=== PATIENT | female | born 1985 | race Caucasian/White ===

== ENCOUNTER 2022-06-07 15:34 | Emergency (ER) | payer OTHER ==
--- OUTSIDE RECORDS SUMMARY | 2022-06-07 15:37 | XMS REPORT | Continuity of Care Document ---
:[address] [facility] t Address [address] [place] [address] Care Team Providers Name Role Phone Bartolo Nassar Attending Clinician Dimple Chilel MD Attending Clinician Robe Bernstein Attending Clinician Payers Payer Name Policy Type Policy Number Effective Date Expiration Date [facility] [place] [id number] 2018 PPO 00:00:00 Problems Condition Condition Condition Status Onset Resolution Last Treating Co mments Source Name Details Category Date Date Treatment Clinician Date S/P total S/P total Disease Active 2018-05 Uni vers abdominal abdominal 2-20 [place] [facility] Status Status Disease Active 2018-05 Univers post total post total 2-19 [place] abdominal abdominal [place] hysterect[place]rect[place] 00 Me dical my my Branch Abnormal Abnormal Disease Active 2012-05 Unive rs weight weight 0-29 ity of gain gain 00:00: [place] [facility] Pain in Pain in Disease Active 2012-05 Univers toe toe 0-15 ity of 00:00: [place] [facility] Antepartum Antepartum Disease Active Overview : Univers anemia anemia 9-09 ICD10 ity of 00:00: Diagnosis [place] 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 Medical [facility]. DOS: 3. CC: Swollen ankles and aching legs. Pt given K-Dur 40meq po. H/H- 7.4/ 25.7. PLT- 266.Will consult Agustina Awad. 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 Medical DOS- Branch 9. IUP at term. Repeat - low transvers e uterine incision. DOS- 7- Primary low transvers e incision. IUP at term. Probable CPD S/P LEEP S/P LEEP Disease Active Overview: Un sebastián of cervix of cervix 17 Awaiting it y of 00:00: medical [place] 00 records. Medical Branch UTI UTI Disease Active Overview: Univer s (urinary (urinary 17 Positive ity of tract tract 00:00: urine [place] infection) infection) 00 culture M edical Branch 3. LIEN- negative 3 Lump or Lump or Disease Active Univers mass in mass in 08-20 ity of breast breast 00:00: [address] Branch Allergies, Adverse Reactions, Alerts Allergy Allergy Status Severity Reaction(s) Onset Inactive Treating Comm ents Source Name Type Date Date Clinician NO KNOWN Drug Active Univers ALLERGIE Class ity of S [facility] Social History Social Habit Start Date Stop Date Quantity Comments Source History of 2004-03-13 Cigarette Smoker Universi ty of tobacco use 00:00:00 [facility] Exposure to Not sure University of SARS-CoV-2 [facility] (event) Branch Sex Assigned At Universit y of [facility] Tobacco use and 2019-06-12 2019-06-12 Never used Universit y of exposure 00:00:00 00:00:00 [facility] Alcohol intake 2019-06-12 2019-06-12 Current drinker Unive rsity of 00:00:00 00:00:00 of alcohol [place] [facility] (finding) Branch Alcohol Comment 2019-04-20 2019-04-20 Rare occasions Unive rsity of 00:00:00 00:00:00 [facility] Tobacco Comment 2019-03-13 2019-03-13 1/2 PPD Universit y of 00:00:00 00:00:00 [facility] Smoking Status Start Date Stop Date Source Current every day smoker 2019-06-12 00:00:00 Uni versity of [place] [facility] [place] Never smoker [facility] Medications Ordered Filled Start Stop Current Ordering Indication Dosage Frequency Signature Comments Components Source Medication Medication Date Date Medication? Clinician (SIG) Name Name chlorhexidi 2019-05 Yes [id number] 15mL Swish and Univers ne 0.12 % 1-17 spit out ity of mouthwash 00:00: 15 mL 2 [place] 00 (two) Medical times Branch daily. ibuprofen 2019- Yes [id number] 600mg Take 1 U nivers 600 mg 1-17 tablet by ity of tablet 00:00: mouth [place] 00 every 6 Medical (six) Branch hours as needed for Pain (scale 4-6). acetaminoph 2019-05 Yes [id number] 1{tbl} Take 1 Un [place]bast[place] en-codeine 1-17 tablet by ity of 300-30 mg 00:00: mouth [place] tablet 00 every 4 Medical (four) Branch hours as needed for Pain (scale 4-6). Indication s: acute pain amoxicillin 2019- 2020- No [id number] 500mg Take 1 Univers 500 mg 1-17 11-28 capsule by ity of capsule 00:00: 05:59 mouth 3 [place] 00 :00 (three) Medical times Branch daily for 10 days. Nitrofurant 2020-0 2020- No 100mg Take 1 Un [place] oin&Nit. 3-23 03-31 capsule by ity of Macrocryst 00:00: 04:59 mouth 2 [place] as 100 mg 00 :00 (two) Medical capsule times Branch daily for 7 days. acetaminoph 2019-0 Yes Take by Uni vers en/diphenhy 1-17 mouth. ity of dramine 15:57: [place] (TYLENOL PM 32 Medical ORAL) Branch acetaminoph 2019-0 Yes Take by Uni vers en/diphenhy 1-17 mouth. ity of dramine 15:57: [place] (TYLENOL PM 32 Medical ORAL) Branch acetaminoph 2020-0 Yes Take by Uni vers en/diphenhy 1-17 mouth. ity of dramine 15:57: [place] (TYLENOL PM 32 Medical ORAL) Branch acetaminoph 2020-0 Yes Take by Uni vers en/diphenhy 1-17 mouth. ity of dramine 15:57: [place] (TYLENOL PM 32 Medical ORAL) Branch acetaminoph 2019-0 Yes Take by Uni vers en/diphenhy 1-17 mouth. ity of dramine 15:57: [place] (TYLENOL PM 32 Medical ORAL) Branch acetaminoph 2019-0 Yes Take by Uni vers en/diphenhy 1-17 mouth. ity of dramine 15:57: [place] (TYLENOL PM 32 Medical ORAL) Branch acetaminoph 2019-0 Yes Take by Uni vers en/diphenhy 1-17 mouth. ity of dramine 15:57: [place] (TYLENOL PM 32 Medical ORAL) Branch calcium 2018-05 Yes 2{tbl} Take 2 Univer s carbonate 2-21 tablets by ity of (ALLEN-SELTZ 20:54: mouth 2 [place] ER ANTACID 32 (two) Medical ORAL) times Branch daily. calcium 2018-05 Yes 2{tbl} Take 2 Univer s carbonate 2-21 tablets by ity of (ALLEN-SELTZ 20:54: mouth 2 [place] as ER ANTACID 32 (two) Medical ORAL) times Branch daily. calcium 2018-05 Yes 2{tbl} Take 2 Univer s carbonate 2-21 tablets by ity of (ALLEN-SELTZ 20:54: mouth 2 [place] ER ANTACID 32 (two) Medical ORAL) times Branch daily. calcium 2018-05 Yes 2{tbl} Take 2 Univer s carbonate 2-21 tablets by ity of (ALLEN-SELTZ 20:54: mouth 2 [place] ER ANTACID 32 (two) Medical ORAL) times Branch daily. calcium 2018-05 Yes 2{tbl} Take 2 Univer s carbonate 2-21 tablets by ity of (ALLEN-SELTZ 20:54: mouth 2 [place] as ER ANTACID 32 (two) Medical ORAL) times Branch daily. calcium 2018-05 Yes 2{tbl} Take 2 Univer s carbonate 2-21 tablets by ity of (ALLEN-SELTZ 20:54: mouth 2 [place] ER ANTACID 32 (two) Medical ORAL) times Branch daily. calcium 2018-05 Yes 2{tbl} Take 2 Univer s carbonate 2-21 tablets by ity of (ALLEN-SELTZ 20:54: mouth 2 [place] ER ANTACID 32 (two) Medical ORAL) times Branch daily. ibuprofen 2018-05 Yes [id number] 600mg Take 1 Univers 600 mg 2-21 tablet by ity of tablet 00:00: mouth [place] 00 every 6 Medical (six) Branch hours as needed for Pain (scale 1-3). HYDROcodone 2018-05 Yes [id number] 1{tbl} Take 1 Univers -acetaminop 2-21 tablet by ity of hen 5-325 00:00: mouth [place] mg tablet 00 every 6 Medical (six) Branch hours as needed for Pain (scale 4-6) or Pain (scale 7-10). ibuprofen 2018-05 Yes [id number] 600mg Take 1 Univers 600 mg 2-21 tablet by ity of tablet 00:00: mouth [place] 00 every 6 Medical (six) Branch hours as needed for Pain (scale 1-3). HYDROcodone 2018-05 Yes [id number] 1{tbl} Take 1 Univers -acetaminop 2-21 tablet by ity of hen 5-325 00:00: mouth [place] mg tablet 00 every 6 Medical (six) Branch hours as needed for Pain (scale 4-6) or Pain (scale 7-10). ibuprofen 2018-05 Yes [id number] 600mg Take 1 Univers 600 mg 2-21 tablet by ity of tablet 00:00: mouth [place] 00 every 6 Medical (six) Branch hours as needed for Pain (scale 1-3). HYDROcodone 2018-05 Yes [id number] 1{tbl} Take 1 Univers -acetaminop 2-21 tablet by ity of hen 5-325 00:00: mouth [place] mg tablet 00 every 6 Medical (six) Branch hours as needed for Pain (scale 4-6) or Pain (scale 7-10). ibuprofen 2018-05 Yes [id number] 600mg Take 1 Univers 600 mg 2-21 tablet by ity of tablet 00:00: mouth [place] 00 every 6 Medical (six) Branch hours as needed for Pain (scale 1-3). HYDROcodone 2018-05 Yes [id number] 1{tbl} Take 1 Univers -acetaminop 2-21 tablet by ity of hen 5-325 00:00: mouth [place] mg tablet 00 every 6 Medical (six) Branch hours as needed for Pain (scale 4-6) or Pain (scale 7-10). ibuprofen 2018-05 Yes [id number] 600mg Take 1 Univers 600 mg 2-21 tablet by ity of tablet 00:00: mouth [place] 00 every 6 Medical (six) Branch hours as needed for Pain (scale 1-3). HYDROcodone 2018-05 Yes [id number] 1{tbl} Take 1 Univers -acetaminop 2-21 tablet by ity of hen 5-325 00:00: mouth [place] mg tablet 00 every 6 Medical (six) Branch hours as needed for Pain (scale 4-6) or Pain (scale 7-10). ibuprofen 2018-05 Yes [id number] 600mg Take 1 Univers 600 mg 2-21 tablet by ity of tablet 00:00: mouth [place] 00 every 6 Medical (six) Branch hours as needed for Pain (scale 1-3). HYDROcodone 2018-05 Yes [id number] 1{tbl} Take 1 Univers -acetaminop 2-21 tablet by ity of hen 5-325 00:00: mouth [place] mg tablet 00 every 6 Medical (six) Branch hours as needed for Pain (scale 4-6) or Pain (scale 7-10). ibuprofen 2018-05 Yes [id number] 600mg Take 1 Univers 600 mg 2-21 tablet by ity of tablet 00:00: mouth [place] 00 every 6 Medical (six) Branch hours as needed for Pain (scale 1-3). HYDROcodone 2018-05 Yes [id number] 1{tbl} Take 1 Univers -acetaminop 2-21 tablet by ity of hen 5-325 00:00: mouth [place] mg tablet 00 every 6 Medical (six) Branch hours as needed for Pain (scale 4-6) or Pain (scale 7-10). HYDROcodone 2019- No 1{tbl} 1 tablet, Univers -acetaminop -12-04 Oral, ONCE i ty of hen (NORCO) 22:45: 22:19 NOW, 1 [place] as 10-325 mg 00 :00 dose, [facility] Medic al tablet 1 12/04/18 at Branch tablet 1745, Routine traMADol Yes [id number] 50mg Take 1 Un sebastián (ULTRAM) 50 12-04 tablet by ity of mg tablet 00:00: mouth [place] 00 every 8 Medical (eight) Branch hours as needed for Pain (scale 4-6). ibuprofen 2019- No [id number] 600mg Take 1 Univers 600 mg 12-04 tablet by ity of tablet 00:00: 04:59 mouth 4 [place] 00 :00 (four) Medical times Branch daily as needed for Pain (scale 4-6) for up to 5 days. acetaminoph 2019- No [id number] 975mg Take 3 Univers en 12-04 tablets by ity of (TYLENOL) 00:00: 04:59 [place] 4 [place] 325 mg 00 :00 (four) Medical tablet times Branch daily for 5 days. This is the maximum safe dose for a healthy adult. cyclobenzap Yes 5mg Take 1 Univ ers rine 5 mg 08-06 tablet by ity o f tablet 00:00: mouth 2 [place] 00 (two) Medical times Branch daily as needed for Muscle Spasms for up to 15 doses. ibuprofen 2019- No 400mg Take 2 Univ ers (MOTRIN IB) 08-06 tablets by i ty of 200 mg 00:00: 00:00 mouth [place] tablet 00 :00 every 6 Medical (six) Branch hours as needed for Pain (scale 1-3) for up to 30 doses. Immunizations Ordered Filled Immunization Date Status Comments [facility] e Immunization Name Name Influenza Virus 2013-01-19 Completed Universit y of Vaccine 00:00:00 [facility] Influenza Virus 2013-01-19 Completed Universit y of Vaccine 00:00:00 [facility] Influenza Virus 2013-01-19 Completed Universit y of Vaccine 00:00:00 [facility] Influenza Virus 2013-01-19 Completed Universit y of Vaccine 00:00:00 [facility] Influenza Virus 2013-01-19 Completed Universit y of Vaccine 00:00:00 [facility] Influenza Virus 2013-01-19 Completed Universit y of Vaccine 00:00:00 [facility] Influenza Virus 2013-01-19 Completed Universit y of Vaccine 00:00:00 [facility] Influenza Virus 2013-01-19 Completed Universit y of Vaccine 00:00:00 [facility] Tdap 2013-01-09 Completed University of 00:00:00 [facility] Tdap 2013-01-09 Completed University of 00:00:00 [facility] Tdap 2013-01-09 Completed University of 00:00:00 [facility] TDAP 2013-01-09 Completed University of 00:00:00 [facility] Tdap 2013-01-09 Completed University of 00:00:00 [facility] Tdap 2013-01-09 Completed University of 00:00:00 [facility] Tdap 2013-01-09 Completed University of 00:00:00 [facility] Tdap 2013-01-09 Completed University of 00:00:00 [facility] Varicella 2012-08-21 Completed University of (varivax)(chicken 00:00:00 [place] M edical pox) Branch Varicella 2012-08-21 Completed University of (varivax)(chicken 00:00:00 [place] M edical pox) Branch Varicella 2012-08-21 Completed University of (varivax)(chicken 00:00:00 [place] M edical pox) Branch Varicella 2012-08-21 Completed University of (varivax)(chicken 00:00:00 [place] M edical pox) Branch Varicella 2012-08-21 Completed University of (varivax)(chicken 00:00:00 [place] M edical pox) Branch Varicella 2012-08-21 Completed University of (varivax)(chicken 00:00:00 [place] M edical pox) Branch Varicella 2012-08-21 Completed University of (varivax)(chicken 00:00:00 [place] M edical pox) Branch Varicella 2012-08-21 Completed University of (varivax)(chicken 00:00:00 [place] M edical pox) Branch Rubella 2008-06-21 Completed University of 00:00:00 [facility] Rubella 2008-06-21 Completed University of 00:00:00 [facility] Rubella 2008-06-21 Completed University of 00:00:00 [facility] Rubella 2008-06-21 Completed University of 00:00:00 [facility] Rubella 2008-06-21 Completed University of 00:00:00 [facility] Rubella 2008-06-21 Completed University of 00:00:00 [facility] Rubella 2008-06-21 Completed University of 00:00:00 [facility] Branch Rubella 2008-06-21 Completed University of 00:00:00 [place] [facility] Td 2003-05-06 Completed University of 00:00:00 [place] [facility] Td 2003-05-06 Completed University of 00:00:00 [place] [facility] Td 2003-05-06 Completed University of 00:00:00 [place] [facility] Td 2003-05-06 Completed University of 00:00:00 [place] [facility] Td 2003-05-06 Completed University of 00:00:00 [place] [facility] Td 2003-05-06 Completed University of 00:00:00 [place] [facility] Td 2003-05-06 Completed University of 00:00:00 [place] [facility] Td 2003-05-06 Completed University of 00:00:00 [facility] Vital Signs Vital Name Observation Time Observation Value Comments Source Systolic blood 2020-03-22 16:49:00 131 mm[Hg] Univer sity of pressure [facility] Diastolic blood 2020-03-22 16:49:00 75 mm[Hg] Unive rsity of [facility] Heart rate 2020-03-22 16:49:00 79 /min Universi ty [facility] Body temperature 2020-03-22 16:49:00 [facility].17 [facility] 2020-03-22 16:49:00 18 /min [facility] Body height 2020-03-22 16:49:00 165.1 cm [facility] Body weight 2020-03-22 16:49:00 72.576 kg [facility] BMI 2020-03-22 16:49:00 26.63 kg/m2 [facility] Oxygen saturation in 2020-03-22 16:49:00 100 /min [facility] Arterial blood by [facility] Pulse oximetry Branch Systolic blood 2019-06-12 16:37:00 106 mm[Hg] Univer sity of pressure [facility] Diastolic blood 2019-06-12 16:37:00 79 mm[Hg] Unive rsity of pressure [facility] Heart rate 2019-06-12 16:37:00 88 /min Universi ty [facility] Body temperature 2019-06-12 16:37:00 36.94 [facility] Respiratory rate 2019-06-12 16:37:00 18 /min Univ ersity of [place] [facility] Body weight 2019-06-12 16:37:00 71.668 kg Universi ty of [place] [facility] BMI 2019-06-12 16:37:00 29.85 kg/m2 Universi ty of [place] [facility] Systolic blood 2019-05-22 15:45:00 104 mm[Hg] Univer sity of pressure [facility] Diastolic blood 2019-05-22 15:45:00 68 mm[Hg] Unive rsity of pressure [facility] Heart rate 2019-05-22 15:45:00 83 /min Universi ty of [place] [facility] Body temperature 2019-05-22 15:45:00 36.94 [place] Univ ersity of [facility] Branch Respiratory rate 2019-05-22 15:45:00 18 /min Univ ersity of [place] [facility] Body height 2019-05-22 15:45:00 154.9 cm Universi ty of [place] [facility] Body weight 2019-05-22 15:45:00 69.854 kg Universi ty of [place] [facility] BMI 2019-05-22 15:45:00 29.10 kg/m2 Universi ty of [place] [facility] Systolic blood 2018-12-04 21:32:00 132 mm[Hg] Univer sity of pressure [place] [facility] Diastolic blood 2018-12-04 21:32:00 69 mm[Hg] Unive rsity of pressure [place] [facility] Heart rate 2018-12-04 21:32:00 87 /min Universi ty of [place] [facility] Respiratory rate 2018-12-04 21:32:00 18 /min Univ ersity of [place] [facility] Body height 2018-12-04 21:32:00 154.9 cm Universi ty of [place] [facility] Body weight 2018-12-04 21:32:00 65.772 kg Universi ty of [place] [facility] BMI 2018-12-04 21:32:00 27.40 kg/m2 Universi ty of [place] [facility] Oxygen saturation in 2018-12-04 21:32:00 98 /min [facility] Arterial blood by [facility] Pulse oximetry Branch Procedures Procedure Date / Time Performed Performing Clinician Sour e CONSENT/REFUSAL FOR 2020-03-22 16:45:23 Doctor Unassigned, No Un [facility] DIAGNOSIS AND Name Medical Branch TREATMENT NOTICE OF PRIVACY 2020-03-22 16:44:27 Doctor Unassigned, No Univ ersity of [place] PRACTICES Name Medical Branch XR FOOT 3+ VW RIGHT 2018-12-04 22:08:51 Robe Llanes Universi ty of [facility] XR TIBIA FIBULA 2 VW 2018-12-04 22:08:30 Robe Llanes ity of [facility] Branch Encounters Start End Encounter Admission Attending Care Care Encounter Source Date/Time Date/Time Type Type Clinicians Facility Department ID 2021-03-04 Emergency [facility] [id number] Univers 06:03:16 ity of [facility] 2020-03-22 2020-03-22 Emergency Bartolo Burnham [facility] [id number] Univers 10:52:00 11:59:00 Francine Rodriguez [id number] i ty of [place] [id number] [place] [id number] [address] 2019-07-27 2019-07-27 [facility] [id number] [facility] 00:00:00 00:00:00 Dimple Rodriguez [id number] i ty [place] [id number] [place] Profess[place] [phone] Nh dical nal [address] [place] [address] 2019-06-24 2019-06-24 Case [facility] [id number] Univers 00:00:00 00:00:00 Management Dimple Rodriguez [id number] ity of [place] [id number] [place] Profess[place] [phone] Nh dical nal [address] [place] [address] 2019-06-12 2019-06-12 Office [facility] [id number] Univers 09:48:15 11:25:17 Visit Dimple Rodriguez [id number] i ty of [place] [id number] [place] Profess[place] [phone] Nh dical nal [address] [place] [address] 2019-05-22 2019-05-22 Office [facility] [id number] Univers 09:43:11 10:33:09 Visit Dimple Rodriguez [id number] i ty of [place] [id number] [facility] Professio [phone] Nh dical nal [address] [facility] 2018-12-04 2018-12-04 Emergency Mario Alberto [facility] [id number] [facility] 16:35:19 18:17:00 Robe Rodriguez [id number] i ty of [place] [id number] [facility] s [place] [phone] [facility] [address] [place] Results Test Description Test Time Test Comments Results Result Sour e Comments XR TIBIA FIBULA Soft tissue Univers ity of 2 VW RIGHT 1 swelling along the [facility] 22:37:13 anterior aspect of Branch the proximal tibiawithout underlying fracture. I, Partha Perez MD., have reviewed this study and agree with the abovereport.* * * * * * * * ORIGINAL REPORT * * * * * * * *EXAM: XR TIBIA FIBULA 2 VW RIGHT. EXAM: XR FOOT 3+ VW RIGHT HISTORY: Right foot ankle and leg pain after stepping through the floor COMPARISON: None. FINDINGS: Radiographs of the right tibia-fibula and foot demonstrate no acutefractures or dislocations. Joint spaces are preserved. Alignment is withinnormal limits. Moderate soft tissue swelling is seen about the mid todistal tibia, most notable anteriorly. [facility], Radiant Results Inft User - 12/04/2018 5:37 PM CDT* * * * * * * * ORIGINAL REPORT * * * * * * * *EXAM: XR TIBIA FIBULA 2 VW RIGHT.EXAM: XR FOOT 3+ VW RIGHTHISTORY: Right foot ankle and leg pain after stepping through the floor COMPARISON: None.FINDINGS: Radiographs of the right tibia-fibula and foot demonstrate no acutefractures or dislocations. Joint spaces are preserved. Alignment is withinnormal limits. Moderate soft tissue swelling is seen about the mid todistal tibia, most notable anteriorly.IMPRESSI ONSoft tissue swelling along the anterior aspect of the proximal tibiawithout underlying fracture.IPartha MD., have reviewed this study and agree with the abovereport. XR FOOT 3+ VW Soft tissue Universit y of RIGHT 1 swelling along the [facility] 22:37:13 anterior aspect of Branch the proximal tibiawithout underlying fracture. IPartha MD., have reviewed this study and agree with the abovereport.* * * * * * * * ORIGINAL REPORT * * * * * * * *EXAM: XR TIBIA FIBULA 2 VW RIGHT. EXAM: XR FOOT 3+ VW RIGHT HISTORY: Right foot ankle and leg pain after stepping through the floor COMPARISON: None. FINDINGS: Radiographs of the right tibia-fibula and foot demonstrate no acutefractures or dislocations. Joint spaces are preserved. Alignment is withinnormal limits. Moderate soft tissue swelling is seen about the mid todistal tibia, most notable anteriorly. [facility], Radiant Results Inft User - 12/04/2018 5:37 PM CDT* * * * * * * * ORIGINAL REPORT * * * * * * * *EXAM: XR TIBIA FIBULA 2 VW RIGHT.EXAM: XR FOOT 3+ VW RIGHTHISTORY: Right foot ankle and leg pain after stepping through the floor COMPARISON: None.FINDINGS: Radiographs of the right tibia-fibula and foot demonstrate no acutefractures or dislocations. Joint spaces are preserved. Alignment is withinnormal limits. Moderate soft tissue swelling is seen about the mid todistal tibia, most notable anteriorly.IMPRESSI ONSoft tissue swelling along the anterior aspect of the proximal tibiawithout underlying fracture.Partha Naranjo MD., have reviewed this study and agree with the abovereport.
[2022-06-07] MEDS ORDERED: ASPIRIN 81 MG CHEWABLE TABLET ONE (15:52)
[2022-06-07 16:11] LABS: Absolute Lymphocytes (CBC) 2.1 K/uL (0.7-4.9); Hematocrit 45.3 % (36.0-45.0); Lymphocytes % 27.5 % (15.3-44.8); MCV 94.2 fL (80-100); MPV 9.8 fL (7.6-11.3); RBC Red Blood Cell Count 4.81 M/uL (3.86-4.86)
--- NOTE | 2022-06-07 16:40 | RAD REPORT ---
EXAM DESCRIPTION: RAD - Chest Single View - 06/07/2022 4:33 pm CLINICAL HISTORY: CHEST PAIN Chest pain. COMPARISON: No comparisons FINDINGS: Portable technique limits examination quality. The lungs are grossly clear. The heart is normal in size. No displaced fractures. IMPRESSION: No acute intrathoracic process suspected.
[2022-06-07 16:42] LABS: Magnesium 2.5 mg/dL (1.6-2.4); Potassium 3.8 mmol/L (3.5-5.1); Troponin High Sensitivity 3.3 pg/mL (<58.9)
[2022-06-07] MEDS ORDERED: NA CHLORIDE 0.9% 1,000 ML ONE (16:54)
[2022-06-07] MEDS ORDERED: KETOROLAC 30 MG/ML INJ ONE (18:34)
--- NOTE | 2022-06-07 19:27 | EDPHYS ---
Physician Documentation [facility] Name: Veronica Carrion Age: 37 yrs Sex: Female : 1985 Arrival Date: 06/07/2022 Time: 15:37 Bed 16 Private MD: ED Physician Will Haile HPI: 06/07 15:44 This 37 yrs old Female presents to ER via Ambulatory with complaints of Chest Pain. kb 15:44 Patient is a 37-year-old female with no medical history who presents with left-sided kb chest pain that started at 830 this morning. States pain has been intermittent and has occurred about 5 times. Pain does not radiate. Patient describes pain as a squeezing pain. Denies any aggravating or alleviating factors. Associated symptoms include dizziness. Denies shortness of breath, nausea, vomiting. Patient has not had similar symptoms in the past and has not recently seen a physician.. Historical: - Allergies: 15:43 Diflucan; ll1 15:43 Morphine; ll1 15:43 jalepanos; ll1 - PMHx: 15:43 Asthma; ll1 - PSHx: 15:43 hysterectomy; Cholecystectomy; section; ll1 - Immunization history:: Client reports having NOT received the Covid vaccine. - Social history:: Smoking status: Patient reports the use of cigarette tobacco products, smokes one pack cigarettes per day. Smoking status: . ROS: 15:44 Constitutional: Negative for fever, chills, and weight loss. kb 15:44 Cardiovascular: Positive for chest pain. 15:44 Neuro: Positive for dizziness. 15:44 All other systems are negative. Exam: 15:44 Constitutional: This is a well developed, well nourished patient who is awake, alert, kb and in no acute distress. Head/Face: Normocephalic, atraumatic. ENT: Moist Mucous membranes Cardiovascular: Regular rate and rhythm with a normal S1 and S2. No gallops, murmurs, or rubs. No pulse deficits. Respiratory: Respirations even and unlabored. No increased work of breathing. Talking in full sentences Abdomen/GI: Soft, non-tender. No distention Skin: Warm, dry with normal turgor. Normal color. MS/ Extremity: Pulses equal, no cyanosis. Neurovascular intact. Full, normal range of motion. Neuro: Awake and alert, GCS 15, oriented to person, place, time, and situation. Moves all extremities. Normal gait. 16:20 ECG was reviewed by the Attending Physician. kb Vital Signs: 15:41 BP 128 / 77; Pulse 88; Resp 17; Temp 98.8; Pulse Ox 97% ; Pain 5/10; ll1 16:15 BP 107 / 71; Pulse 74; Resp 17; Pulse Ox 100% on R/A; eh3 17:15 BP 107 / 66; Pulse 68; Resp 20; Pulse Ox 100% ; eh3 19:16 BP 109 / 69; Pulse 65; Resp 17; Pulse Ox 100% on R/A; jb4 MDM: 15:40 Patient medically screened. kb 15:47 Differential diagnosis: abnormal EKG, acute myocardial infarction, coronary artery kb disease chest wall pain, pleurisy, pneumonia. Data reviewed: vital signs, nurses notes. 19:25 Counseling: I had a detailed discussion with the patient and/or guardian regarding: the kb historical points, exam findings, and any diagnostic results supporting the discharge/admit diagnosis, lab results, radiology results, the need for outpatient follow up, a family practitioner, to return to the emergency department if symptoms worsen or persist or if there are any questions or concerns that arise at home. 19:26 ED course: Patient has a heart score of 1 due to smoking status. Second troponin still kb normal. Will have patient follow-up with PCP and cardiology. Patient in agreement with plan of care.. 06/07 15:44 Order name: Basic Metabolic Panel; Complete Time: 16:43 kb 06/07 15:44 Order name: CBC with Diff; Complete Time: 16:13 kb 06/07 15:44 Order name: Magnesium; Complete Time: 16:43 kb 06/07 15:44 Order name: NT PRO-BNP; Complete Time: 16:43 kb 06/07 15:44 Order name: Troponin HS; Complete Time: 16:43 kb 06/07 18:31 Order name: Troponin High Sensitivity; Complete Time: 19:24 kb 06/07 15:44 Order name: XRAY Chest (1 view); Complete Time: 16:43 kb 06/07 15:44 Order name: EKG; Complete Time: 15:44 kb 06/07 15:44 Order name: Cardiac monitoring; Complete Time: 16:19 kb 06/07 15:44 Order name: EKG - Nurse/Tech; Complete Time: 16:19 kb 06/07 15:44 Order name: IV Saline Lock; Complete Time: 16:06 kb 06/07 15:44 Order name: Labs collected and sent; Complete Time: 16:06 kb 06/07 15:44 Order name: O2 Per Protocol; Complete Time: 15:47 kb 06/07 15:44 Order name: O2 Sat Monitoring; Complete Time: 15:47 kb EC:20 Rate is 66 beats/min. Rhythm is regular. QRS Rand is Normal. MO interval is normal at kb 154 msec. QRS interval is normal at 90 msec. QT interval is normal at 436 msec. Administered Medications: 15:50 Drug: Aspirin Chewable Tablet 324 mg Route: PO; eh3 17:07 Follow up: Response: No adverse reaction eh3 17:00 Drug: NS 0.9% 1000 ml Route: IV; Rate: 1000 ml; Site: left antecubital; eh3 18:52 Follow up: Response: No adverse reaction; IV Status: Completed infusion; IV Intake: db 1000ml 18:30 Drug: Ketorolac 15 mg Route: IVP; Site: left antecubital; eh3 19:44 Follow up: Response: No adverse reaction jb4 Disposition: 19:18 Co-signature as Attending Physician, Will FLANNERY was immediately available on-site ms3 in the Emergency Department for consultation in the care of the patient. Disposition Summary: 06/07/22 19:26 Discharge Ordered Location: Home kb Condition: Stable kb Diagnosis - Chest pain, unspecified kb Followup: kb - With: Emergency Department - When: As needed - Reason: Worsening of condition Followup: kb - With: Private Physician - When: 2 - 3 days - Reason: Recheck today's complaints, Continuance of care, Re-evaluation by your physician Discharge Instructions: - Discharge Summary Sheet kb - Nonspecific Chest Pain, Adult, [id number] kb Forms: - Medication Reconciliation Form kb - Thank You Letter kb - Antibiotic Education kb - Prescription Opioid Use kb Prescriptions: - Diclofenac Sodium 75 mg Oral tablet,delayed release (DR/EC) - take 1 tablet by ORAL route 2 times per day As needed; 30 tablet; Refills: 0, kb Product Selection Permitted Signatures: Dispatcher [employer] Kamila Sweeney, SPAGHETTI MACHINE OPERATOR-C SPAGHETTI MACHINE OPERATOR-CkSegun Beard RN RN ll1 Will Haile, DO [place] ms3 Martha Gay RN RN eh3 Mohsen Cheek RN jb4 Jessica Allen RN db Corrections: (The following items were deleted from the chart) 15:44 15:41 Social history: Smoking status: Patient denies any tobacco usage or history of. ll1 ll1
--- NOTE | 2022-06-07 19:27 | ER ---
Nurse's Notes [facility] Name: Veronica Carrion Age: 37 yrs Sex: Female : 1985 Arrival Date: 06/07/2022 Time: 15:37 Bed 16 Private MD: Diagnosis: Chest pain, unspecified Presentation: 06/07 15:41 Chief complaint: Patient states: L CP and dizziness off/on for 1 day. Coronavirus ll1 screen: Client denies travel out of the [place] in the last 14 days. Ebola Screen: Patient denies travel to an Ebola-affected area in the 21 days before illness onset. Initial Sepsis Screen: Does the patient meet any 2 criteria? No. Patient's initial sepsis screen is negative. Does the patient have a suspected source of infection? No. Patient's initial sepsis screen is negative. Risk Assessment: Do you want to hurt yourself or someone else? Patient reports no desire to harm self or others. Onset of symptoms was June 07, 2022. 15:41 Method Of Arrival: Ambulatory ll1 15:41 Acuity: VELMA 3 ll1 15:44 Coronavirus screen: Vaccine status: Patient reports being unvaccinated. cough unrelated ll1 to allergies. Historical: - Allergies: 15:43 Diflucan; ll1 15:43 Morphine; ll1 15:43 jalepanos; ll1 - PMHx: 15:43 Asthma; ll1 - PSHx: 15:43 hysterectomy; Cholecystectomy; section; ll1 - Immunization history:: Client reports having NOT received the Covid vaccine. - Social history:: Smoking status: Patient reports the use of cigarette tobacco products, smokes one pack cigarettes per day. Smoking status: . Screenin:45 [facility] ED Fall Risk Assessment (Adult) History of falling in the last 3 months, eh3 including since admission No falls in past 3 months (0 pts) Confusion or Disorientation No (0 pts) Intoxicated or Sedated No (0 pts) Impaired Gait No (0 pts) Mobility Assist Device Used No (0 pt) Altered Elimination No (0 pt) Score/Fall Risk Level 0 - 2 = Low Risk. Abuse screen: Denies threats or abuse. Denies injuries from another. Nutritional screening: No deficits noted. Tuberculosis screening: No symptoms or risk factors identified. Assessment: 15:45 General: Appears in no apparent distress. uncomfortable, Behavior is calm, cooperative, eh3 appropriate for age. Pain: Complains of pain in anterior aspect of left upper chest Pain radiates to left scapular area Pain began 1 day ago. Neuro: Level of Consciousness is awake, alert, obeys commands, Oriented to person, place, time, situation. Cardiovascular: Capillary refill < 3 seconds Patient's skin is warm and dry. Respiratory: Airway is patent Respiratory effort is even, unlabored, Respiratory pattern is regular, symmetrical. GI: No signs and/or symptoms were reported involving the gastrointestinal system. Abdomen is round non-distended. : No signs and/or symptoms were reported regarding the genitourinary system. EENT: No signs and/or symptoms were reported regarding the EENT system. Derm: No signs and/or symptoms reported regarding the dermatologic system. Skin is pink, warm \T\ dry. Musculoskeletal: No signs and/or symptoms reported regarding the musculoskeletal system. Circulation, motion, and sensation intact. Range of motion: intact in all extremities. 16:45 Reassessment: Patient appears in no apparent distress at this time. Patient and/or eh3 family updated on plan of care and expected duration. Pain level reassessed. Patient is alert, oriented x 3, equal unlabored respirations, skin warm/dry/pink. 19:16 Reassessment: Patient appears in no apparent distress at this time. Patient and/or jb4 family updated on plan of care and expected duration. Pain level reassessed. Patient is alert, oriented x 3, equal unlabored respirations, skin warm/dry/pink. Vital Signs: 15:41 BP 128 / 77; Pulse 88; Resp 17; Temp 98.8; Pulse Ox 97% ; Pain 5/10; ll1 16:15 BP 107 / 71; Pulse 74; Resp 17; Pulse Ox 100% on R/A; eh3 17:15 BP 107 / 66; Pulse 68; Resp 20; Pulse Ox 100% ; eh3 19:16 BP 109 / 69; Pulse 65; Resp 17; Pulse Ox 100% on R/A; jb4 Vitals: 16:15 Cardiac Rhythm Assessment Sinus rhythm. eh3 ED Course: 15:37 Patient arrived in ED. rg4 15:40 Kamila Mott FNP-C is PHCP. kb 15:40 Will Haile DO is Attending Physician. kb 15:41 Arm band placed on. ll1 15:43 Triage completed. ll1 15:45 Patient has correct armband on for positive identification. Placed in gown. Bed in low eh3 position. Call light in reach. Side rails up X2. Client placed on continuous cardiac and pulse oximetry monitoring. NIBP monitoring applied. Door closed. Noise minimized. Lights dimmed. Warm blanket given. 15:45 Patient maintains SpO2 saturation greater than 95% on room air. eh3 15:46 Martha Gay, RN is Primary Nurse. eh3 15:50 Inserted saline lock: 22 gauge in left antecubital area, using aseptic technique. Blood eh3 collected. 16:34 XRAY Chest (1 view) In Process Unspecified. EDMS 19:44 No provider procedures requiring assistance completed. IV discontinued, intact, jb4 bleeding controlled, No redness/swelling at site. Pressure dressing applied. Administered Medications: 15:50 Drug: Aspirin Chewable Tablet 324 mg Route: PO; eh3 17:07 Follow up: Response: No adverse reaction eh3 17:00 Drug: NS 0.9% 1000 ml Route: IV; Rate: 1000 ml; Site: left antecubital; eh3 18:52 Follow up: Response: No adverse reaction; IV Status: Completed infusion; IV Intake: db 1000ml 18:30 Drug: Ketorolac 15 mg Route: IVP; Site: left antecubital; eh3 19:44 Follow up: Response: No adverse reaction jb4 Intake: 18:52 IV: 1000ml; Total: 1000ml. db Outcome: 19:26 Discharge ordered by MD. kb 19:44 Discharged to home ambulatory. jb4 19:44 Condition: stable 19:44 Discharge instructions given to patient, Instructed on discharge instructions, follow up and referral plans. medication usage, Demonstrated understanding of instructions, follow-up care, medications, Prescriptions given X 1. 19:44 Patient left the ED. jb4 Signatures: Dispatcher [employer] EDMS Kamila Mott, KAREN-C DONOR RELATIONS MANAGER-Stephania Jovel rg4 Mohsen Cheek RN RN jb4 Segun Arnett RN RN 1 Martha Gay RN RN 3 Jessica Allen RN RN db Corrections: (The following items were deleted from the chart) 15:44 15:41 Social history: Smoking status: Patient denies any tobacco usage or history of. ll1 ll1
[2022-06-07 19:58] VITALS: TEMP 98.8
[2022-06-07 20:04] VITALS: O2SAT 100
[2022-06-07 20:10] VITALS: BP 109/69
== END 2022-06-07 19:44 | disposition home or self-care (01) ==
LOC: ER 15:34
DX: R07.89 Other chest pain (principal); F17.210 Nicotine dependence, cigarettes, uncomplicated; Z88.3 Allergy status to other anti-infective agents; Z88.5 Allergy status to narcotic agent; Z91.018 Allergy to other foods
CPT/HCPCS: 96361; 93005 ×2; 85025; 80048; 36415; 83735; 84484 ×2; 83880; 71045; 96374; 99284; J7030